=== PATIENT | male | born 1935 | race Caucasian/White ===

== ENCOUNTER 2022-04-11 10:01 | Outpatient (CLI) | payer MEDICARE | END 2022-04-11 10:02 | disposition home or self-care (01) | LOC: SCSCT 10:01 | PROVIDERS: ATTEND Psychiatry & Neurology Neurology | DX: I63.9 Cerebral infarction, unspecified (principal); G25.0 Essential tremor; R93.89 Abnormal findings on diagnostic imaging of other specified body structures | CPT/HCPCS: 70450 ==

== ENCOUNTER 2022-11-05 13:00 | Outpatient (CLI) | payer MEDICARE ==
[2022-11-05 14:19] LABS: Hemoglobin 14.4 g/dL (13.5-17.5); Mean Corpuscular HGB CONC 33.6 g/dL (32.0-36.0); Mean Corpuscular Hemoglobin 32.1 pg (27.0-33.0); Mean Corpuscular Volume 95.5 fl (81.2-95.1); Mean Platelet Volume 10.1 fl (7.4-10.4); Platelet Count 282 10x3/uL (150-450); RBC Distribution Width 12.7 % (11.5-14.5); Red Blood Cell (RBC) Count 4.49 10x6/uL (4.32-5.72); White Blood Cell (WBC) Count 7.4 10x3/uL (3.5-10.5)
[2022-11-05 14:37] LABS: Anion Gap 15 mmol/L (10-20); BUN (Urea Nitrogen) 21 mg/dL (8.4-25.7); Calc. Creatinine Clearance 0 mL/min (70-130); Carbon Dioxide 22 mmol/L (23-31); Chloride 107 mmol/L (98-107); Estimated GFR 58; Glucose 224 mg/dL (83-110); Potassium 4.7 mmol/L (3.5-5.1); Sodium 139 mmol/L (136-145)
== END 2022-11-05 13:01 | disposition home or self-care (01) ==
LOC: LABBT 13:00
PROVIDERS: ATTEND Thoracic Surgery (Cardiothoracic Vascular Surgery)
DX: Z01.812 Encounter for preprocedural laboratory examination (principal); I73.9 Peripheral vascular disease, unspecified
CPT/HCPCS: 80048; 85027

== ENCOUNTER 2022-11-06 09:20 | Day surgery (SDC) | payer MEDICARE ==
[2022-11-05 10:25] VITALS: BMI 31.2
[2022-11-06] MEDS ORDERED: Lidocaine 1% (PF) 30 ML VIAL ONE (13:27)
[2022-11-06] MEDS ORDERED: Heparin 10,000 UNITS/ 10 ML VIAL ONE (14:34)
[2022-11-06] MEDS ORDERED: Iopamidol 370 76% 100 ML VIAL ONE (15:54)
== END 2022-11-06 17:40 | disposition home or self-care (01) ==
LOC: SDC 09:20
PROVIDERS: ATTEND Thoracic Surgery (Cardiothoracic Vascular Surgery)
PROC: B4101ZZ Fluoroscopy of Abdominal Aorta using Low Osmolar Contrast (ICD-10-PCS; principal; 2022-11-06)
PROC: B41F1ZZ Fluoroscopy of Right Lower Extremity Arteries using Low Osmolar Contrast (ICD-10-PCS; 2022-11-06)
DX: E11.51 Type 2 diabetes mellitus with diabetic peripheral angiopathy without gangrene (principal); S91.001A Unspecified open wound, right ankle, initial encounter; I10 Essential (primary) hypertension; M19.90 Unspecified osteoarthritis, unspecified site; Z79.4 Long term (current) use of insulin; Z79.82 Long term (current) use of aspirin; Z79.84 Long term (current) use of oral hypoglycemic drugs; Z79.899 Other long term (current) drug therapy
CPT/HCPCS: 36247; 75710; C1769; J1644; J2001; Q9967

== ENCOUNTER 2025-10-11 18:50 | Inpatient (IN) | payer MEDICARE, OTHER ==
[~2025-10-11 18:50] MED LIST: Iopamidol-370 76% 500 ML MDV (1 ML CHARGE) ONE
[2025-10-11 19:24] LABS: #Basophils 0.10 10x3/uL (0.0-0.2); #Eosinophils 0.22 10x3/uL (0.0-0.7); #Monocytes 0.64 10x3/uL (0.11-0.59); #Neutrophils 4.75 10x3/uL (1.40-6.50); %Basophils 1.3 % (0.0-1.0); %Eosinophils 2.8 % (0.0-10.0); %Lymphocytes 27.0 % (21.0-51.0); %Monocytes 8.0 % (0.0-10.0); %Neutrophils 59.4 % (42.0-75.0); Hematocrit 41.4 % (42.0-52.0); Hemoglobin 14.2 g/dL (14.0-18.0); Mean Corpuscular Hemoglobin 33.3 pg (27.0-31.0); Mean Corpuscular Volume 97.0 fL (78.0-98.0); Platelet Count 226 10x3/uL (130-400); Red Blood Cell (RBC) Count 4.27 mill/uL (4.70-6.10); White Blood Cell (WBC) Count 7.99 10x3/uL (4.8-10.8)
[2025-10-11 19:51] LABS: ALT (SGPT) 23 U/L (Less than 45); AST (SGOT) 18 U/L (11-34); Albumin 3.4 g/dL (3.1-4.5); Alkaline Phosphatase 75 U/L (40-110); Anion Gap 17 mmol/L (10-20); BUN (Urea Nitrogen) 19 mg/dL (8.4-25.7); Bilirubin, Total 0.2 mg/dL (0.3-1.2); Calc. Creatinine Clearance 0 mL/min (70-130); Calcium 8.7 mg/dL (7.8-10.44); Carbon Dioxide 19 mmol/L (23-31); Chloride 109 mmol/L (98-107); Globulin 3.9 g/dL (2.4-3.5); Glucose 317 mg/dL (83-110); Potassium 4.1 mmol/L (3.5-5.1); Sodium 141 mmol/L (136-145)
[2025-10-11] MEDS ORDERED: Orphenadrine Citrate 60 MG/2 ML VIAL ONE (23:36)
[2025-10-12] MEDS ORDERED: Ondansetron PF 4 MG/2 ML Vial IVP PRN (00:04)
[2025-10-12] MEDS ORDERED: Acetaminophen 325 MG TAB PO PRN (00:04)
[2025-10-12] MEDS ORDERED: Dextrose 50% Abboject 50 ML SYRINGE SLOW IVP PRN (00:04)
[2025-10-12] MEDS ORDERED: cloNIDine 0.1 MG TAB ONE (00:04)
[2025-10-12] MEDS ORDERED: Glucagon 1 MG/ML KIT IM PRN (00:04)
[2025-10-12] MEDS: Acetaminophen 325 MG TAB PO SCH (01:56)
[2025-10-12] MEDS ORDERED: Acetaminophen 325 MG TAB ONE (02:15)
[2025-10-12 05:05] LABS: #Basophils 0.08 10x3/uL (0.0-0.2); #Eosinophils 0.14 10x3/uL (0.0-0.7); #Monocytes 0.85 10x3/uL (0.11-0.59); #Neutrophils 6.49 10x3/uL (1.40-6.50); %Basophils 0.9 % (0.0-1.0); %Eosinophils 1.5 % (0.0-10.0); %Lymphocytes 17.8 % (21.0-51.0); %Monocytes 9.2 % (0.0-10.0); %Neutrophils 70.1 % (42.0-75.0); Hematocrit 40.4 % (42.0-52.0); Hemoglobin 13.4 g/dL (14.0-18.0); Mean Corpuscular Hemoglobin 32.6 pg (27.0-31.0); Mean Corpuscular Volume 98.3 fL (78.0-98.0); Platelet Count 211 10x3/uL (130-400); Red Blood Cell (RBC) Count 4.11 mill/uL (4.70-6.10); White Blood Cell (WBC) Count 9.26 10x3/uL (4.8-10.8)
[2025-10-12 05:11] LABS: Anion Gap 16 mmol/L (10-20); BUN (Urea Nitrogen) 19 mg/dL (8.4-25.7); Calc. Creatinine Clearance 0 mL/min (70-130); Calcium 8.3 mg/dL (7.8-10.44); Carbon Dioxide 19 mmol/L (23-31); Chloride 110 mmol/L (98-107); Glucose 238 mg/dL (83-110); Potassium 3.9 mmol/L (3.5-5.1); Sodium 141 mmol/L (136-145)
[2025-10-12] MEDS: Methocarbamol 500 MG TAB PO SCH (06:02)
[2025-10-12] MEDS: hydrALAZINE 20 MG/ML VIAL SLOW IVP PRN (06:11)
[2025-10-12 06:34] VITALS: BMI 33.0
[2025-10-12] MEDS: Losartan 25 MG TAB PO SCH (09:20)
[2025-10-12] MEDS: Insulin Glargine 30 UNITS/0.3 ML VIAL SC SCH (09:20)
[2025-10-12] MEDS: Gabapentin 300 MG CAP PO SCH ×2 (09:21→21:27)
[2025-10-12] MEDS: Aspirin 81 mg Enteric Coated Tablet PO SCH (09:21)
[2025-10-12] MEDS: Primidone 250 MG TAB PO SCH (12:09)
[2025-10-12] MEDS: Enoxaparin 40 MG (0.4 mL) SYRINGE SC SCH (21:26)
[2025-10-12] MEDS: Topiramate 100 MG TAB PO SCH (21:28)
[2025-10-13 04:41] LABS: Anion Gap 12 mmol/L (10-20); BUN (Urea Nitrogen) 14 mg/dL (8.4-25.7); Calc. Creatinine Clearance 99 mL/min (70-130); Calcium 8.4 mg/dL (7.8-10.44); Carbon Dioxide 21 mmol/L (23-31); Chloride 111 mmol/L (98-107); Glucose 193 mg/dL (83-110); Potassium 3.6 mmol/L (3.5-5.1); Sodium 140 mmol/L (136-145)
[2025-10-13 04:42] LABS: #Basophils 0.05 10x3/uL (0.0-0.2); #Eosinophils Less than 0.03 10x3/uL (0.0-0.7); #Monocytes 0.74 10x3/uL (0.11-0.59); #Neutrophils 6.76 10x3/uL (1.40-6.50); %Basophils 0.5 % (0.0-1.0); %Eosinophils 0.1 % (0.0-10.0); %Lymphocytes 23.5 % (21.0-51.0); %Monocytes 7.5 % (0.0-10.0); %Neutrophils 68.0 % (42.0-75.0); Hematocrit 41.3 % (42.0-52.0); Hemoglobin 13.6 g/dL (14.0-18.0); Mean Corpuscular Hemoglobin 32.2 pg (27.0-31.0); Mean Corpuscular Volume 97.9 fL (78.0-98.0); Platelet Count 211 10x3/uL (130-400); Red Blood Cell (RBC) Count 4.22 mill/uL (4.70-6.10); White Blood Cell (WBC) Count 9.93 10x3/uL (4.8-10.8)
[2025-10-13 16:35] VITALS: BP 144/92; TEMP 97.6
== END 2025-10-13 19:42 | DRG 552 ==
LOC: ERS 18:50 → ERHOLD 10-12 00:14 → 2NO 10-12 03:27
PROVIDERS: ADMIT Colon & Rectal Surgery; ATTEND Internal Medicine
DX: S22.079A Unspecified fracture of T9-T10 vertebra, initial encounter for closed fracture (principal); I10 Essential (primary) hypertension; E11.9 Type 2 diabetes mellitus without complications; G47.33 Obstructive sleep apnea (adult) (pediatric); Z98.890 Other specified postprocedural states; W19.XXXA Unspecified fall, initial encounter; S22.039A Unspecified fracture of third thoracic vertebra, initial encounter for closed fracture; Z79.899 Other long term (current) drug therapy; G25.0 Essential tremor; I73.9 Peripheral vascular disease, unspecified; R11.0 Nausea; E03.9 Hypothyroidism, unspecified; Z79.82 Long term (current) use of aspirin; Z79.890 Hormone replacement therapy
CPT/HCPCS: 36415; 36416; 70450; 71260; 72125; 74177; 80048; 80053; 84484; 85025; 93005; 96374; 96375; 97139; J0360; J1650; J1815; J2270; J2360; Q9967